=== PATIENT | female | born 1945 | race Caucasian/White ===

== ENCOUNTER → 2016-10-24 | Outpatient (CLI) | payer OTHER ==
[~2016-10-24] MED LIST: ATOR-54 PO; LEVO88TA22 PO; MULT-506 PO; ZOLP10TA6 PO
--- NOTE | 2016-10-25 12:17 | MAMMOGRAPHY REPORT ---
BILATERAL DIGITAL SCREENING MAMMOGRAM WITH CAD: 10/24/2016 CLINICAL HISTORY: Routine screening. Patient has no complaints. TECHNIQUE: Bilateral CC and MLO views were obtained. Current study was also evaluated with a Comput er Aided Detection (CAD) system. COMPARISON: Comparison is made to exams dated: 10/19/2015 mammogram, 10/14/2014 mammogram, 10/07/2013 mammogram, 10/01/2012 mammogram, 09/29/2011 mammogram, and 09/27/2010 mammogram - [facility] enter. BREAST COMPOSITION: There are scattered areas of fibroglandular density in both breasts. FINDINGS: There are mild vascular calcifications in the breasts. Stable asymmetry in the anterior r ight breast, 2.6 cm posterior to the nipple on the CC view. A 9 mm asymmetry in the middle to poste rior left breast, along the posterior nipple line on the CC view appears similar dating back to at [facility] 09/12/2008, therefore likely benign. There is a loose grouping of punctate monomorphic microca lcifications in the upper outer anterior left breast, also stable dating back to 2008. No new suspicious mass, architectural distortion or cluster of suspicious microcalcifications is see n bilaterally. IMPRESSION: ACR BI-RADS CATEGORY 2: BENIGN There is no mammographic evidence of malignancy. A 1 year screening mammogram is recommended. The p atient will receive written notification of the results. Approximately 10% of breast cancers are not detected with mammography. A negative mammographic repor t should not delay biopsy if a clinically suggestive mass is present. Cynthia Silva M.D. ay/:10/24/2016 16:47:16 Animal Behaviourist: Lissa Eubanks RT(R)(M), [facility] letter sent: Normal 1/2 BI-RADS Code: ACR BI-RADS Category 2: Benign
== END | disposition home or self-care (01) ==
LOC: C.MAMM 13:13
PROVIDERS: ATTEND Obstetrics & Gynecology
DX: Z12.31 Encounter for screening mammogram for malignant neoplasm of breast (principal)

== ENCOUNTER → 2016-11-08 | Outpatient (CLI) | payer OTHER ==
[2016-11-08 12:47] LABS: ALB/GLOB RATIO 0.9 (0.9-2); ALKALINE PHOSPHATASE 106 U/L (45-117); ALT/SGPT 30 U/L (12-78); AST/SGOT 21 U/L (15-37); BLOOD UREA NITROGEN 15 mg/dl (7-18); CALCIUM 8.6 mg/dl (8.5-10.1); CARBON DIOXIDE 29 mmol/L (21-32); CHLORIDE 106 mmol/L (98-107); CHOLESTEROL 154 mg/dl (0-200); CHOLESTEROL/HDL RATIO 2.1; CREATININE 0.84 mg/dl (0.60-1.20); GLUCOSE 99 mg/dl (70-99); HDL CHOLESTEROL 74 mg/dl; POTASSIUM 3.7 mmol/L (3.5-5.1); SODIUM 143 mmol/L (136-145)
[2016-11-08 13:02] LABS: LDL CHOLESTEROL CALCULATED 51 mg/dl; TRIGLYCERIDES 145 mg/dl (0-150); VERY LOW DENSITY LIPOPROT CALC 29 mg/dl
== END | disposition home or self-care (01) ==
LOC: C.LABBFT 11:02
PROVIDERS: ATTEND Internal Medicine
DX: E78.00 Pure hypercholesterolemia, unspecified (principal); E03.9 Hypothyroidism, unspecified

== ENCOUNTER → 2017-04-20 | Outpatient (CLI) | payer OTHER ==
[2017-04-20 12:07] LABS: HEMATOCRIT 40.7 % (37-47); MEAN CELL VOLUME 87.9 fL (80-100); MEAN CORPUSCULAR HEMOGLOBIN 28.7 pg (25-34); MEAN CORPUSCULAR HGB CONC 32.7 g/dl (32-36); MEAN PLATELET VOLUME 12.4 fL (7.4-10.4); PLATELET COUNT 280 K/uL (130-400); RED BLOOD COUNT 4.63 M/uL (4.2-5.4); WHITE BLOOD COUNT 8.04 K/uL (4.8-10.8)
[2017-04-20 12:19] LABS: ALT/SGPT 25 U/L (12-78); AST/SGOT 23 U/L (15-37); BLOOD UREA NITROGEN 9 mg/dl (7-18); BUN/CREATININE RATIO 10.6 (10-20); CALCIUM 8.5 mg/dl (8.5-10.1); CARBON DIOXIDE 29 mmol/L (21-32); CHLORIDE 106 mmol/L (98-107); CREATININE 0.86 mg/dl (0.60-1.20); GLUCOSE 118 mg/dl (70-99); POTASSIUM 3.4 mmol/L (3.5-5.1); SODIUM 142 mmol/L (136-145)
[2017-04-20 12:33] LABS: ALB/GLOB RATIO 0.9 (0.9-2); ALKALINE PHOSPHATASE 99 U/L (45-117); CHOLESTEROL 145 mg/dl (0-200); CHOLESTEROL/HDL RATIO 2.3; HDL CHOLESTEROL 62 mg/dl; LDL CHOLESTEROL CALCULATED 64 mg/dl; TRIGLYCERIDES 95 mg/dl (0-150); VERY LOW DENSITY LIPOPROT CALC 19 mg/dl
== END | disposition home or self-care (01) ==
LOC: C.LABBFT 09:47
PROVIDERS: ATTEND Internal Medicine
DX: E78.00 Pure hypercholesterolemia, unspecified (principal); E03.9 Hypothyroidism, unspecified

== ENCOUNTER → 2017-10-25 | Outpatient (CLI) | payer OTHER ==
[2017-10-25 12:54] LABS: HEMATOCRIT 40.5 % (37-47); HEMOGLOBIN 13.3 g/dL (12.0-16.0); MEAN CELL VOLUME 88.4 fL (80-100); MEAN CORPUSCULAR HGB CONC 32.8 g/dl (32-36); MEAN PLATELET VOLUME 12.7 fL (7.4-10.4); PLATELET COUNT 286 K/uL (130-400); RED CELL DISTRIBUTION WIDTH CV 14.5 % (11.5-14.5); RED CELL DISTRIBUTION WIDTH SD 46.8 fL (36.4-46.3); WHITE BLOOD COUNT 9.18 K/uL (4.8-10.8)
[2017-10-25 13:12] LABS: ALBUMIN 3.3 gm/dl (3.4-5.0); ALT/SGPT 19 U/L (12-78); AST/SGOT 21 U/L (15-37); BLOOD UREA NITROGEN 15 mg/dl (7-18); CALCIUM 8.5 mg/dl (8.5-10.1); CARBON DIOXIDE 29 mmol/L (21-32); CHOLESTEROL 178 mg/dl (0-200); CREATININE 0.82 mg/dl (0.60-1.20); GLUCOSE 93 mg/dl (70-99); POTASSIUM 2.8 mmol/L (3.5-5.1); SODIUM 142 mmol/L (136-145); TOTAL PROTEIN 7.1 gm/dl (6.4-8.2)
[2017-10-25 13:21] LABS: ALKALINE PHOSPHATASE 102 U/L (45-117); LDL CHOLESTEROL CALCULATED 88 mg/dl
== END | disposition home or self-care (01) ==
LOC: C.LABBFT 10:04
PROVIDERS: ATTEND Internal Medicine
DX: E78.00 Pure hypercholesterolemia, unspecified (principal); E03.9 Hypothyroidism, unspecified

== ENCOUNTER → 2017-10-26 | Outpatient (CLI) | payer OTHER ==
--- NOTE | 2017-10-26 14:44 | MAMMOGRAPHY REPORT ---
BILATERAL DIGITAL SCREENING MAMMOGRAM TOMOSYNTHESIS WITH CAD: 10/26/2017 CLINICAL HISTORY: Routine screening. Patient has no complaints. TECHNIQUE: Breast tomosynthesis in addition to standard 2D mammography was performed. Current study was also evaluated with a Computer Aided Detection (CAD) system. COMPARISON: Comparison is made to exams dated: 10/24/2016 mammogram, 10/19/2015 mammogram, 10/14/2014 ma mmogram, 10/07/2013 mammogram, 10/01/2012 mammogram, and 09/29/2011 mammogram - [facility]. BREAST COMPOSITION: There are scattered areas of fibroglandular density in both breasts. FINDINGS: No suspicious masses, calcifications, or areas of architectural distortion are noted in ei ther breast. There has been no significant interval change compared to prior exams. Bilateral asymme tries and bilateral benign-appearing calcifications are not significantly changed. IMPRESSION: ACR BI-RADS CATEGORY 2: BENIGN There is no mammographic evidence of malignancy. A 1 year screening mammogram is recommended. The pa tient will receive written notification of the results. Approximately 10% of breast cancers are not detected with mammography. A negative mammographic report should not delay biopsy if a clinically suggestive mass is present. Shauna Zapata M.D. /:10/26/2017 13:23:11 Pasting Machine Operator: Елена [facility] letter sent: Normal 1/2 BI-RADS Code: ACR BI-RADS Category 2: Benign
== END | disposition home or self-care (01) ==
LOC: C.MAMM 12:47
PROVIDERS: ATTEND Obstetrics & Gynecology
DX: Z12.31 Encounter for screening mammogram for malignant neoplasm of breast (principal)

== ENCOUNTER → 2017-11-01 | Outpatient (CLI) | payer OTHER ==
[2017-11-01 16:43] LABS: BLOOD UREA NITROGEN 12 mg/dl (7-18); CALCIUM 9.2 mg/dl (8.5-10.1); CARBON DIOXIDE 30 mmol/L (21-32); CREATININE 0.82 mg/dl (0.60-1.20); GLUCOSE 98 mg/dl (70-99); POTASSIUM 3.9 mmol/L (3.5-5.1); SODIUM 137 mmol/L (136-145)
== END | disposition home or self-care (01) ==
LOC: C.LABBFT 14:22
PROVIDERS: ATTEND Internal Medicine
DX: E87.6 Hypokalemia (principal)

== ENCOUNTER → 2018-02-22 | Outpatient (CLI) | payer OTHER ==
[2018-02-22 12:35] LABS: BLOOD UREA NITROGEN 16 mg/dl (7-18); CALCIUM 8.7 mg/dl (8.5-10.1); CARBON DIOXIDE 29 mmol/L (21-32); CREATININE 0.78 mg/dl (0.60-1.20); GLUCOSE 104 mg/dl (70-99); POTASSIUM 3.8 mmol/L (3.5-5.1); SODIUM 140 mmol/L (136-145)
== END | disposition home or self-care (01) ==
LOC: C.LABBFT 10:19
PROVIDERS: ATTEND Internal Medicine
DX: E87.6 Hypokalemia (principal)

== ENCOUNTER 2019-07-22 12:19 | Observation (INO) ==
[2019-07-22] MEDS ORDERED: ACETAMINOPHEN 500 MG TAB PO STA (12:55)
[2019-07-22] MEDS ORDERED: SODIUM CHLORIDE 0.9% 500 ML IV SCH (13:00)
--- NOTE | 2019-07-22 13:08 | XRay Report ---
XR chest 1V portable CLINICAL HISTORY: Dyspnea dyspnea COMPARISON STUDY: No previous studies for comparison. FINDINGS: Poorly defined parenchymal infiltrate right base. Lungs otherwise appear clear. Diaphragms are smooth. IMPRESSION: Poorly defined parenchymal infiltrate right base. ACT 112: Negative or not required by law. The above report was generated using voice recognition software. It may contain grammatical, syntax or spelling errors. Electronically signed by: Jones Miranda M.D. 07/22/2019 1:07 PM
[2019-07-22 13:20] LABS: Basophils # (auto) 0.04 K/uL (0-0.2); Basophils % (auto) 0.3 %; Eosinophils # (auto) 0.07 K/uL (0-0.5); Eosinophils % (auto) 0.6 %; Hematocrit (blood only) 37.4 % (37-47); Hemoglobin 12.3 g/dL (12.0-16.0); Immature Granulocytes # (auto) 0.03 K/uL (0.00-0.02); Immature Granulocytes % (auto) 0.3 %; Lymphocytes # (auto) 1.47 K/uL (1.2-3.4); Lymphocytes % (auto) 12.5 %; Mean Corpuscular Hemoglobin 29.6 pg (25-34); Mean Corpuscular Hgb Conc 32.9 g/dL (32-36); Mean Corpuscular Volume 90.1 fL (80-100); Mean Platelet Volume 11.6 fL (7.4-10.4); Monocytes # (auto) 1.29 K/uL (0.11-0.59); Neutrophils # (auto) 8.86 K/uL (1.4-6.5); Neutrophils % (auto) 75.3 %; Platelet Count 232 K/uL (130-400); RDW Coefficient of Variation 14.3 % (11.5-14.5); RDW Standard Deviation 47.5 fL (36.4-46.3); Red Blood Count 4.15 M/uL (4.2-5.4); White Blood Count 11.76 K/uL (4.8-10.8)
[2019-07-22 13:29] LABS: Partial Thromboplastin Ratio 0.9; Partial Thromboplastin Time 24.7 Seconds (21.0-31.0); Prothrombin Time 10.5 Seconds (9.0-12.0)
[2019-07-22 13:35] LABS: Alanine Aminotransferase 29 U/L (12-78); Aspartate Aminotransferase 19 U/L (15-37); BUN Creatinine Ratio 11.5 (10-20); Blood Urea Nitrogen 11 mg/dl (7-18); Calcium 9.8 mg/dl (8.5-10.1); Carbon Dioxide 28 mmol/L (21-32); Chloride 104 mmol/L (98-107); Creatinine Clr Calc Pharmacy 52.9 ml/min; Est GFR (African American) 64.9; Glucose 129 mg/dl (70-99); Magnesium 2.2 mg/dl (1.8-2.4); Potassium 3.3 mmol/L (3.5-5.1); Sodium 139 mmol/L (136-145)
[2019-07-22 13:45] LABS: Albumin Globulin Ratio 0.7 (0.9-2); Alkaline Phosphatase 104 U/L (45-117); Bilirubin,Total 2.2 mg/dl (0.2-1); Globulin 4.3 gm/dl (2.5-4.0); Total Protein 7.3 gm/dl (6.4-8.2); Troponin I < 0.015 ng/ml (0-0.045)
[2019-07-22] MEDS ORDERED: OPTIRAY 320 125ml IV PRN (13:51)
[2019-07-22 14:01] LABS: Influenza A virus by PCR Neg for Influ A (Neg); Influenza B virus by PCR Neg for Influ B (Neg)
--- NOTE | 2019-07-22 14:20 | CT Scan Report ---
CT angio chest PE protocol CT DOSE: 530.24 mGy.cm HISTORY: 74 years-old Female with Dyspnea, recent travel, R sided CP. Acute shortness of breath wit h right-sided chest pain TECHNIQUE: Multiple CTA images of the chest were obtained after the intravenous administration of 118 ml Optiray 320. Coronal and sagittal MIPS were obtained from the axial data set and were submitted for review. All measurements were obtained according to NASCET criteria. A dose lowering technique w as utilized adhering to the principles of ALARA. COMPARISON: Chest radiograph of same day FINDINGS: CTA: Cardiomegaly. No pericardial effusion. Coronary arterial calcifications are noted. No thoracic aortic aneurysm or dissection. Moderate mixed plaque of the thoracic aorta. Patency of the imaged great ves sels. The pulmonary arterial tree is opacified to the level of the proximal subsegmental branches. Pu lmonary emboli are noted within the distal right main pulmonary artery extending into the right upper lobe are, right upper and lower lobe segmental and subsegmental branches and the subsegmental pulmon jose bladder noted within the left lower lobe. No evidence of right heart strain. CT CHEST: Unremarkable thyroid. No adenopathy by CT size criteria. Small right pleural effusion. No pneumothora x. Mild linear subsegmental consolidation of the left lung base. Linear consolidative opacity of the right lower lobe with patchy consolidation suggests atelectasis. Superimposed pulmonary infarct not e xcluded. Respiratory motion artifact limits the study. 7 x 6 mm solid nodule right lower lobe, image 171 series 4. Cholecystectomy. Mild nonspecific wall thickening of the distal esophagus. Mild hepatic steatosis. So ft tissues are within normal limits. Bones appear to be intact. No acute fracture. IMPRESSION: 1. Bilateral pulmonary emboli, right greater than left which includes the distal right pulmonary kayla ry, lobar, segmental and subsegmental branches of the right lower lobe. 2. Small right pleural effusion with right greater left bibasilar atelectasis. Superimposed patchy gr oundglass and consolidative opacities of the right lung base may also reflect atelectasis, however pn eumonitis or developing infarct not excluded. 3. Cardiomegaly. 4. Cholecystectomy. ACT 112: Negative or not required by law. The above report was generated using voice recognition software. It may contain grammatical, syntax o r spelling errors. Electronically signed by: Rohan Gibbs M.D. 07/22/2019 2:19 PM
[2019-07-22] MEDS ORDERED: HEPARIN SOD (PORCINE) 1000 UNIT/ML 10 ML VIAL ONE (15:10)
[2019-07-22] MEDS: HEPARIN SODIUM/DEXTROSE 25,000 UNITS/500 ML BAG IV SCH (15:13)
--- NOTE | 2019-07-22 15:27 | History & Physical Report ---
Date of Service July 22, 2019 Assessment & Plan (1) Pulmonary emboli: 74-year-old female presenting with bilateral pulmonary emboli, right greater than left. Emboli involve the distal right pulmonary artery, lobar, segmental and subsegmental branches of the right lower lobe. She is afebrile, hemodynamically stable, adequate oxygenation on room air. No prior history of clots, no family history of clots. She does admit to a somewhat sedentary lifestyle where she walks around the house only. Recently completed a 4-hour car ride from [facility]. Observation to medical floor telemetry monitoring -Check bilateral lower extremity Doppler Heparin drip We will start on NOAC tomorrow Present on Admission?: Yes (2) Weakness: Patient complaining of generalized weakness. No focal findings on neurologic exam. Monitor electrolytes. Replete potassium. Continue to monitor Present on Admission?: Yes (3) Insomnia: Chronic. Stable. Continue Ambien 10 mg p.o. nightly Present on Admission?: Yes (4) Hypothyroidism: Chronic. Stable. TSH = 2.54 Continue Synthroid 88 mcg p.o. daily Present on Admission?: Yes (5) Hypercholesteremia: Chronic. Stable. Patient reports that she was on a program for which she could obtain this medication at a reduced fernandes. However, her program has recently and this medication costs over $200 per month. Therefore, she has not taken this since and was planning to discuss with her PCP. Continue atorvastatin 20 mg p.o. nightly. -Case management requested to assist with home medications Present on Admission?: Yes (6) Leukocytosis: Patient with mildly elevated WBC = 11.76. She reports malaise and subjective fever at home. Flu is negative, CT chest with some groundglass in setting of PE.? Developing pneumonia Awaiting UA Check procalcitonin Ceftriaxone and azithromycin for now for empiric coverage Continue to monitor Present on Admission?: Yes (7) Abnormal LFTs: Patient with mildly elevated total bilirubin at 2.2. No right upper quadrant tenderness. Patient is status post cholecystectomy. Alkaline phosphatase is within normal range at 104. Repeat LFTs in a.m. F/E/N -Hep-Lock. Monitor electrolytes and replete as needed. P.o. potassium 40 mEq x 1 dose. Heart healthy diet as tolerated ProphylaxisHeparin drip as above for treatment of bilateral PE Codefull per discussion with patient Dispositionobservation to medical floor telemetry monitoring Present on Admission?: Yes History of Present Illness Chief Complaint: Shortness of breath, right-sided chest pain Primary Care Provider: Abelardo Smith MD Angeles Ocampo is a pleasant 74-year-old female presenting with right-sided chest pain and shortness of breath. Patient states that her symptoms began on 07/18/2019 as a mild headache which progressed in severity. On 07/19/2019 patient was complaining of more severe headache as well as subjective fevers, dizziness, shortness of breath, dyspnea on exertion as well as severe right-sided chest pain. Chest pain is located from the right sternal border to the right anterior portion of the chest and under her right breast. Pain is worse with movement and deep breathing. Pain 10 out of 10 on arrival. After receiving Tylenol pain is now 7 out of 10. She denies cough, hemoptysis. No syncope. Patient with no personal history of VTE, no known family history of VTE. No recent surgeries or trauma. She did recently complete a 4-hour car ride from [place], [place]. She reports that they stopped approximately group home to use the restroom, stretches her legs and get coffee. She denies lower extremity pain, cramping or swelling. Patient reports regular mammograms which have all been unremarkable. She has never had a colonoscopy. She is status post hysterectomy. ER course: Tylenol, heparin drip with bolus Allergies Allergy/AdvReac Type Severity Reaction Status Date / Time aspirin Allergy Intermediate HIVES AND Verified 07/22/19 14:08 ITCHING metronidazole Allergy Intermediate HIVES AND Verified 07/22/19 14:08 ITCHING Quinolones Allergy Intermediate HIVES AND Verified 07/22/19 14:08 ITCHING Cipro Allergy Mild Rash Verified 08/04/15 07:28 ciprofloxacin Allergy Mild Rash Verified 07/22/19 14:08 clarithromycin Allergy Mild Rash Verified 07/22/19 14:08 amoxicillin [From Augmentin] AdvReac Verified 07/22/19 14:08 clavulanic acid AdvReac Verified 07/22/19 14:08 [From Augmentin] homatropine AdvReac Verified 07/22/19 14:08 [From Hycodan (with homatropin)] hydrocodone AdvReac Verified 07/22/19 14:08 [From codan (with homatropin)] Home Medications Home Medications Medication Instructions Recorded Confirmed Type atorvastatin 20 mg tablet 20 mg PO HS #30 tab 05/20/19 07/22/19 Rx levothyroxine 88 mcg tablet 88 mcg PO DAILY #60 tab 05/20/19 07/22/19 Rx zolpidem 10 mg tablet 10 mg PO HS #30 tab 05/20/19 07/22/19 Rx Past Med/Surg History Medical History Hypercholesteremia (Chronic) Hypothyroidism (Chronic) Insomnia (Chronic) Family History Mother Myocardial infarction Macular degeneration Brother Colorectal cancer Father COPD (chronic obstructive pulmonary disease) Social History Preferred Language: Greenlandic Communication Ability: Effective Beliefs That Will Affect Care: None Current Living Situation: Spouse Other Information That Helps Us Care for You: No Feels Safe at Home: Yes Safety Concerns: Feels Safe At This Time Smoking Status: Former smoker Age Started Using Tobacco: 13 ; Age Quit Using Tobacco: 38 ; packs per day: 0.5 ; Cigarettes Per Day: 10 ; Number of Years Since Quit: 36 ; Second Hand Exposure: No ; Hx Alcohol Use: Yes Alcohol type: beer, wine and hard liquor Alcohol Intake Frequency: Rarely Hx Substance Use: No Review of Systems Review of Systems: All systems reviewed & are unremarkable except as noted in HPI & below Patient reports her legs feel "and "wishy-washy" Mild diarrhea today Physical Exam Physical Exam: General: patient resting comfortably, NAD, non-toxic in appearance, AA&O x 4 Skin: warm, dry, intact, no rashes or lesions HEENT: NC/AT, PERRL, EOMI, anicteric sclera, conjunctiva without injection, external ear normal to inspection and nontender, nares patent, moist mucus membranes, dentition intact, no oropharyngeal lesions, neck supple, trachea midline, no LAD, no thyromegaly, no JVD Heart: +S1/S2, regular, no m/r/g, + chest wall tenderness on right Lungs: equal air entry bilaterally, no rales/rhonchi/wheezes Abd: +BS, soft, NT/ND, no masses/organomegaly/ascites Ext: Cool, 2+ pulses in UE/LE bilaterally, no clubbing/cyanosis, trace edema bilaterally Neuro: nonfocal, patient AA&O x 4, speech intact, no facial droop, moving all extremities on command with equal strength 5/5 Results & Data Vital Signs (Past 12 Hours) Vital Signs Temp Pulse Resp BP Pulse Ox 07/22/19 14:30 72 16 96 07/22/19 14:06 73 18 155/65 H 95 07/22/19 14:00 75 18 07/22/19 13:30 73 18 95 07/22/19 13:23 77 15 96 07/22/19 12:21 36.8 C 90 16 138/77 97 Laboratory Results Lab Results 07/22/19 07/22/19 07/22/19 Range/Units 13:08 13:08 13:08 WBC 11.76 H (4.8-10.8) K/uL RBC 4.15 L (4.2-5.4) M/uL Hgb 12.3 (12.0-16.0) g/dL Hct 37.4 (37-47) % MCV 90.1 (80-100) fL MCH 29.6 (25-34) pg MCHC 32.9 (32-36) g/dL RDW Std Deviation 47.5 H (36.4-46.3) fL RDW Coeff of Kamila 14.3 (11.5-14.5) % Plt Count 232 (130-400) K/uL MPV 11.6 H (7.4-10.4) fL Immature Gran % (Auto) 0.3 % Neut % (Auto) 75.3 % Lymph % (Auto) 12.5 % Larue % (Auto) 11.0 % Eos % (Auto) 0.6 % Baso % (Auto) 0.3 % Immature Gran # (Auto) 0.03 H (0.00-0.02) K/uL Neut # (Auto) 8.86 H (1.4-6.5) K/uL Lymph # (Auto) 1.47 (1.2-3.4) K/uL Larue # (Auto) 1.29 H (0.11-0.59) K/uL Eos # (Auto) 0.07 (0-0.5) K/uL Baso # (Auto) 0.04 (0-0.2) K/uL PT 10.5 (9.0-12.0) Seconds INR 1.0 (0.9-1.1) APTT 24.7 (21.0-31.0) Seconds PTT Ratio 0.9 Sodium 139 (136-145) mmol/L Potassium 3.3 L (3.5-5.1) mmol/L Chloride 104 (98-107) mmol/L Carbon Dioxide 28 (21-32) mmol/L Anion Gap 7.0 (3-11) BUN 11 (7-18) mg/dl Creatinine 0.98 (0.6-1.2) mg/dl Est Cr Clr Drug Dosing 52.9 ml/min Est GFR ( Amer) 64.9 Est GFR (Non-Af Amer) 56.0 BUN/Creatinine Ratio 11.5 (10-20) Glucose 129 H (70-99) mg/dl Calcium 9.8 (8.5-10.1) mg/dl Magnesium 2.2 (1.8-2.4) mg/dl Total Bilirubin 2.2 H (0.2-1) mg/dl AST 19 (15-37) U/L ALT 29 (12-78) U/L Alkaline Phosphatase 104 (45-117) U/L Troponin I < 0.015 (0-0.045) ng/ml NT-Pro-B Natriuret Pep (0-1800) pg/ml Total Protein 7.3 (6.4-8.2) gm/dl Albumin 3.0 L (3.4-5.0) gm/dl Globulin 4.3 H (2.5-4.0) gm/dl Albumin/Globulin Ratio 0.7 L (0.9-2) TSH 2.540 (0.300-4.500) uIu/ml Influenza Type A (PCR) (Neg) Influenza Type B (PCR) (Neg) 07/22/19 07/22/19 Range/Units 13:08 13:20 WBC (4.8-10.8) K/uL RBC (4.2-5.4) M/uL Hgb (12.0-16.0) g/dL Hct (37-47) % MCV (80-100) fL MCH (25-34) pg MCHC (32-36) g/dL RDW Std Deviation (36.4-46.3) fL RDW Coeff of Kamila (11.5-14.5) % Plt Count (130-400) K/uL MPV (7.4-10.4) fL Immature Gran % (Auto) % Neut % (Auto) % Lymph % (Auto) % Larue % (Auto) % Eos % (Auto) % Baso % (Auto) % Immature Gran # (Auto) (0.00-0.02) K/uL Neut # (Auto) (1.4-6.5) K/uL Lymph # (Auto) (1.2-3.4) K/uL Larue # (Auto) (0.11-0.59) K/uL Eos # (Auto) (0-0.5) K/uL Baso # (Auto) (0-0.2) K/uL PT (9.0-12.0) Seconds INR (0.9-1.1) APTT (21.0-31.0) Seconds PTT Ratio Sodium (136-145) mmol/L Potassium (3.5-5.1) mmol/L Chloride (98-107) mmol/L Carbon Dioxide (21-32) mmol/L Anion Gap (3-11) BUN (7-18) mg/dl Creatinine (0.6-1.2) mg/dl Est Cr Clr Drug Dosing ml/min Est GFR ( Amer) Est GFR (Non-Af Amer) BUN/Creatinine Ratio (10-20) Glucose (70-99) mg/dl Calcium (8.5-10.1) mg/dl Magnesium (1.8-2.4) mg/dl Total Bilirubin (0.2-1) mg/dl AST (15-37) U/L ALT (12-78) U/L Alkaline Phosphatase (45-117) U/L Troponin I (0-0.045) ng/ml NT-Pro-B Natriuret Pep 108 (0-1800) pg/ml Total Protein (6.4-8.2) gm/dl Albumin (3.4-5.0) gm/dl Globulin (2.5-4.0) gm/dl Albumin/Globulin Ratio (0.9-2) TSH (0.300-4.500) uIu/ml Influenza Type A (PCR) Neg for Influ A (Neg) Influenza Type B (PCR) Neg for Influ B (Neg) Diagnostic Findings CT angio chest PE protocol CT DOSE: 530.24 mGy.cm HISTORY: 74 years-old Female with Dyspnea, recent travel, R sided CP. Acute shortness of breath with right-sided chest pain TECHNIQUE: Multiple CTA images of the chest were obtained after the intravenous administration of 118 ml Optiray 320. Coronal and sagittal MIPS were obtained from the axial data set and were submitted for review. All measurements were obtained according to NASCET criteria. A dose lowering technique was utilized adhering to the principles of ALARA. COMPARISON: Chest radiograph of same day FINDINGS: CTA: Cardiomegaly. No pericardial effusion. Coronary arterial calcifications are noted. No thoracic aortic aneurysm or dissection. Moderate mixed plaque of the thoracic aorta. Patency of the imaged great vessels. The pulmonary arterial tree is opacified to the level of the proximal subsegmental branches. Pulmonary emboli are noted within the distal right main pulmonary artery extending into the right upper lobe are, right upper and lower lobe segmental and subsegmental branches and the subsegmental pulmonary bladder noted within the left lower lobe. No evidence of right heart strain. CT CHEST: Unremarkable thyroid. No adenopathy by CT size criteria. Small right pleural effusion. No pneumothorax. Mild linear subsegmental consolidation of the left lung base. Linear consolidative opacity of the right lower lobe with patchy consolidation suggests atelectasis. Superimposed pulmonary infarct not excluded. Respiratory motion artifact limits the study. 7 x 6 mm solid nodule right lower lobe, image 171 series 4. Cholecystectomy. Mild nonspecific wall thickening of the distal esophagus. Mild hepatic steatosis. Soft tissues are within normal limits. Bones appear to be intact. No acute fracture. IMPRESSION: 1. Bilateral pulmonary emboli, right greater than left which includes the distal right pulmonary artery, lobar, segmental and subsegmental branches of the right lower lobe. 2. Small right pleural effusion with right greater left bibasilar atelectasis. Superimposed patchy groundglass and consolidative opacities of the right lung base may also reflect atelectasis, however pneumonitis or developing infarct not excluded. 3. Cardiomegaly. 4. Cholecystectomy. ACT 112: Negative or not required by law. The above report was generated using voice recognition software. It may contain grammatical, syntax or spelling errors. Electronically signed by: Rohan Gibbs M.D. 07/22/2019 2:19 PM Dictated: 07/22/19 1359 Transcribed: 07/22/19 135 XR chest 1V portable CLINICAL HISTORY: Dyspnea dyspnea COMPARISON STUDY: No previous studies for comparison. FINDINGS: Poorly defined parenchymal infiltrate right base. Lungs otherwise appear clear. Diaphragms are smooth. IMPRESSION: Poorly defined parenchymal infiltrate right base. ACT 112: Negative or not required by law. The above report was generated using voice recognition software. It may contain grammatical, syntax or spelling errors. Electronically signed by: Jones Miranda M.D. 07/22/2019 1:07 PM Dictated: 07/22/19 1307 Transcribed: 07/22/19 1307 Code Status & VTE Plan Code Status Full code VTE Prophylaxis Plan VTE Prophylaxis will be ordered: Yes PG Care Time/CCT Total # of Minutes Spent Total Time Spent with Patient: Total time spent is greater than 50% in co ordination of care (as documented) at patient's floor/unit and/or counseling patient: (1) Pulmonary emboli Acute cor pulmonale presence: unspecified Chronicity: acute Pulmonary embolism type: unspecified Qualified Code(s): I26.99 - Other pulmonary embolism without acute cor pulmonale (2) Insomnia Insomnia type: unspecified Qualified Code(s): G47.00 - Insomnia, unspecified (3) Hypothyroidism Hypothyroidism type: unspecified Qualified Code(s): E03.9 - Hypothyroidism, unspecified (4) Leukocytosis Leukocytosis type: unspecified Qualified Code(s): D72.829 - Elevated white blood cell count, unspecified
[2019-07-22] MEDS ORDERED: ACETAMINOPHEN 325 MG TAB PO PRN (17:00)
[2019-07-22] MEDS ORDERED: POTASSIUM CHLORIDE 20 MEQ TABCR PO STA (17:00)
[2019-07-22] MEDS ORDERED: AZITHROMYCIN 500 MG in DEXTROSE 5% 250 ML IV STA (17:11)
--- NOTE | 2019-07-22 17:17 | Emergency Department Note ---
Entered by Tracie Beach acting as a scribe for Valentín Gomes M.D. History of Present Illness General Chief complaint: Shortness of Breath/Dyspnea Stated complaint: SHORTNESS OF BREATH - SENT BY DOCTOR ARVIN Time Seen by Provider: 07/22/19 12:45 Source: patient History of Present Illness Onset (ago): day(s) 3 Location: chest Radiation: neck and other (left shoulder) Pain Consistency: + other (persistent) Maximum Pain Intensity: 4 Quality: + other (chest pain) Exacerbated By: + movement Associated symptoms: + chest pain, + fever/chills, + headaches and + shortness of breath; no nausea/vomiting and no rash Treatments prior to arrival: none The patient is a 74 year old female presenting to the Emergency Department complaining of persistent chest pain starting 3 days ago. The patient reports that she has been experiencing chest pain which radiates to her neck and left shoulder. She states that she has been short of breath for the past 3 days. She explains that she has had a headache for the past 4 days. She notes that she has been experiencing diarrhea. She adds that she is congested and that her right ear hurts. The patient reports that she doesnt know if she has a fever as her temperature normally is low but that she has been experiencing chills. She states that bending over worsens her symptoms. She notes that she hasnt taken any medications for her symptoms. She adds that she and her recently traveled 4 hours by car out of community health and returned to the [place] area on 07/19/19. The patient denies recent falls, abdominal pain, nausea, vomiting, rash and use of blood thinners. Home Medications Home Medications Medication Instructions Recorded Confirmed Type atorvastatin 20 mg tablet 20 mg PO HS #30 tab 05/20/19 07/22/19 Rx levothyroxine 88 mcg tablet 88 mcg PO DAILY #60 tab 05/20/19 07/22/19 Rx zolpidem 10 mg tablet 10 mg PO HS #30 tab 05/20/19 07/22/19 Rx Allergies Allergy/AdvReac Type Severity Reaction Status Date / Time aspirin Allergy Intermediate HIVES AND Verified 07/22/19 14:08 ITCHING metronidazole Allergy Intermediate HIVES AND Verified 07/22/19 14:08 ITCHING Quinolones Allergy Intermediate HIVES AND Verified 07/22/19 14:08 ITCHING Cipro Allergy Mild Rash Verified 08/04/15 07:28 ciprofloxacin Allergy Mild Rash Verified 07/22/19 14:08 clarithromycin Allergy Mild Rash Verified 07/22/19 14:08 amoxicillin [From Augmentin] AdvReac Verified 07/22/19 14:08 clavulanic acid AdvReac Verified 07/22/19 14:08 [From Augmentin] homatropine AdvReac Verified 07/22/19 14:08 [From Hycodan (with homatropin)] hydrocodone AdvReac Verified 07/22/19 14:08 [From Hycodan (with homatropin)] Past Med/Surg History Medical History Hypercholesteremia (Chronic) Hypothyroidism (Chronic) Insomnia (Chronic) Family History Mother Myocardial infarction Macular degeneration Brother Colorectal cancer Father COPD (chronic obstructive pulmonary disease) Social History Preferred Language: Malaysian Communication Ability: Effective Beliefs That Will Affect Care: None Current Living Situation: Spouse Feels Safe at Home: Yes Smoking Status: Former smoker Age Started Using Tobacco: 13 ; Age Quit Using Tobacco: 38 ; packs per day: 0.5 ; Cigarettes Per Day: 10 ; Second Hand Exposure: No ; Hx Alcohol Use: Yes Alcohol type: beer, wine and hard liquor Alcohol Intake Frequency: Rarely Hx Substance Use: No Review of Systems See HPI for pertinent positives & negatives. and A total of 10 systems reviewed and were otherwise negative Physical Exam Vital Signs Vital Signs - 24 hr 07/22/19 12:21 07/22/19 13:23 07/22/19 13:30 Temperature 36.8 C Temperature Source Oral Pulse Rate 90 77 73 Pulse Rate from SpO2 Sensor 77 73 Respiratory Rate 16 15 18 Respiratory Effort / Characteristics Non-Labored Respiratory Depth Normal Blood Pressure 138/77 Blood Pressure Mean 97 Pulse Oximetry 97 96 95 Oxygen Delivery Method Room Air Room Air Room Air Sepsis Recent Fever Within 48 Hours No Sepsis Action Taken by Nursing No Action Required 07/22/19 14:00 07/22/19 14:06 07/22/19 14:30 Temperature Temperature Source Pulse Rate 75 73 72 Pulse Rate from SpO2 Sensor 74 73 Respiratory Rate 18 18 16 Respiratory Effort / Characteristics Respiratory Depth Blood Pressure 155/65 H Blood Pressure Mean 88 Pulse Oximetry 95 96 Oxygen Delivery Method Room Air Room Air Sepsis Recent Fever Within 48 Hours Sepsis Action Taken by Nursing 07/22/19 15:02 07/22/19 15:18 Temperature Temperature Source Pulse Rate 79 Pulse Rate from SpO2 Sensor 73 79 Respiratory Rate 17 Respiratory Effort / Characteristics Respiratory Depth Blood Pressure 144/66 H Blood Pressure Mean 83 Pulse Oximetry 96 94 Oxygen Delivery Method Sepsis Recent Fever Within 48 Hours Sepsis Action Taken by Nursing GENERAL: Awake, alert, well-appearing, in no distress HENT: Normocephalic, atraumatic. EYES: Normal conjunctiva. Sclera non-icteric. NECK: Mild right trapezius tenderness. Supple. No nuchal rigidity. RESPIRATORY: Clear to auscultation. No wheezes. Normal respiratory effort. CARDIAC: Normal rate. Normal rhythm. Extremities warm and well perfused. GI: Soft, non-distended. No tenderness to palpation. No rebound or guarding. RECTAL: Deferred. MUSCULOSKELETAL: Atraumatic. Mild right upper chest wall tenderness. LOWER EXTREMITIES: Trace bilateral pedal edema. Calves are equal size bilater ally and non-tender. NEURO: Normal sensorium. No sensory or motor deficits noted. No facial droop. SKIN: Warm and dry. No rash or jaundice noted. Course Course 1245: The patient was evaluated in room D1B, and a complete history and physical examination were performed. 1424: I updated the patient at this time on her imaging studies. 1438: I reevaluated the patient at this time. 1444: I discussed the patients case with Dr. Aristeo RASHEED hospitalist. She will evaluate the patient for further management. Administered Medications Heparin Sodium/Dextrose (Heparin Sodium/Dextrose) 25,000 units in 500 mls @ 25 mls/hr IV .Q20H PENDING SALE TO [facility]; Protocol Stop: 08/21/19 14:44 Last Admin: 07/22/19 15:13 Dose: 1,250 units/hr, 25 mls/hr Documented by: [id number] Cosigned by: [id number] Ioversol (Optiray 320 125ml) 118 ml IV ONCE PRN PRN Reason: Interaction Checking Stop: 07/26/19 13:50 Last Admin: 07/22/19 13:53 Dose: 118 ml Documented by: [id number] Discontinued Medications Acetaminophen (Tylenol) 1,000 mg PO NOW STA Stop: 07/22/19 12:56 Last Admin: 07/22/19 13:14 Dose: 1,000 mg Documented by: [id number] Heparin Sodium (Porcine) (Heparin Iv Bolus) Confirm Administered Dose 10,000 units .ROUTE .STK-MED ONE Stop: 07/22/19 15:11 Last Admin: 07/22/19 15:13 Dose: 4,000 units Documented by: [id number] Cosigned by: [id number] Heparin Sodium/Dextrose () 1 ea IV NOW STA; Protocol Stop: 07/22/19 14:44 Last Admin: 07/22/19 15:20 Dose: Not Given Documented by: [id number] Sodium Chloride (Nss) 500 mls @ 999 mls/hr IV .Q31M RUPALI Stop: 07/22/19 13:30 Last Infusion: 07/22/19 13:46 Dose: 0 mls/hr Documented by: [id number] Admin: 07/22/19 13:15 Dose: 999 mls/hr Documented by: [id number] Critical Care Time Critical Care Time: Yes Total Critical Care Time: 34 I have personally spent 34 minutes of critical care time in the direct management of this patient. This includes bedside care, interpretation of diagnostic studies, and testing, discussion with consultants, patient, and family members, and other required patient management activities. This 34 minutes is in excess of all separately billable procedures. Medical Decision Making Differential Diagnosis Differential diagnoses includes but is not limited to acute coronary syndrome, myocardial infarction, pericarditis, pulmonary embolus, aortic dissection, pneumonia, pneumothorax, musculoskeletal, shingles, esophageal. Medical Records Attestation: I reviewed the patient's medical records. Home Medications Current Medication List: was personally reviewed by pr Laboratory Data Attestation: I reviewed the patient's lab results. Result diagrams: 07/22/19 13:08 07/22/19 13:08 Lab Results 07/22/19 07/22/19 07/22/19 Range/Units 13:08 13:08 13:08 WBC 11.76 H (4.8-10.8) K/uL RBC 4.15 L (4.2-5.4) M/uL Hgb 12.3 (12.0-16.0) g/dL Hct 37.4 (37-47) % MCV 90.1 (80-100) fL MCH 29.6 (25-34) pg MCHC 32.9 (32-36) g/dL RDW Std Deviation 47.5 H (36.4-46.3) fL RDW Coeff of Kamila 14.3 (11.5-14.5) % Plt Count 232 (130-400) K/uL MPV 11.6 H (7.4-10.4) fL Immature Gran % (Auto) 0.3 % Neut % (Auto) 75.3 % Lymph % (Auto) 12.5 % Platte % (Auto) 11.0 % Eos % (Auto) 0.6 % Baso % (Auto) 0.3 % Immature Gran # (Auto) 0.03 H (0.00-0.02) K/uL Neut # (Auto) 8.86 H (1.4-6.5) K/uL Lymph # (Auto) 1.47 (1.2-3.4) K/uL Platte # (Auto) 1.29 H (0.11-0.59) K/uL Eos # (Auto) 0.07 (0-0.5) K/uL Baso # (Auto) 0.04 (0-0.2) K/uL PT 10.5 (9.0-12.0) Seconds INR 1.0 (0.9-1.1) APTT 24.7 (21.0-31.0) Seconds PTT Ratio 0.9 Sodium 139 (136-145) mmol/L Potassium 3.3 L (3.5-5.1) mmol/L Chloride 104 (98-107) mmol/L Carbon Dioxide 28 (21-32) mmol/L Anion Gap 7.0 (3-11) BUN 11 (7-18) mg/dl Creatinine 0.98 (0.6-1.2) mg/dl Est Cr Clr Drug Dosing 52.9 ml/min Est GFR ( Amer) 64.9 Est GFR (Non-Af Amer) 56.0 BUN/Creatinine Ratio 11.5 (10-20) Glucose 129 H (70-99) mg/dl Calcium 9.8 (8.5-10.1) mg/dl Magnesium 2.2 (1.8-2.4) mg/dl Total Bilirubin 2.2 H (0.2-1) mg/dl AST 19 (15-37) U/L ALT 29 (12-78) U/L Alkaline Phosphatase 104 (45-117) U/L Troponin I < 0.015 (0-0.045) ng/ml NT-Pro-B Natriuret Pep (0-1800) pg/ml Total Protein 7.3 (6.4-8.2) gm/dl Albumin 3.0 L (3.4-5.0) gm/dl Globulin 4.3 H (2.5-4.0) gm/dl Albumin/Globulin Ratio 0.7 L (0.9-2) TSH 2.540 (0.300-4.500) uIu/ml Influenza Type A (PCR) (Neg) Influenza Type B (PCR) (Neg) 07/22/19 07/22/19 Range/Units 13:08 13:20 WBC (4.8-10.8) K/uL RBC (4.2-5.4) M/uL Hgb (12.0-16.0) g/dL Hct (37-47) % MCV (80-100) fL MCH (25-34) pg MCHC (32-36) g/dL RDW Std Deviation (36.4-46.3) fL RDW Coeff of Kamila (11.5-14.5) % Plt Count (130-400) K/uL MPV (7.4-10.4) fL Immature Gran % (Auto) % Neut % (Auto) % Lymph % (Auto) % Platte % (Auto) % Eos % (Auto) % Baso % (Auto) % Immature Gran # (Auto) (0.00-0.02) K/uL Neut # (Auto) (1.4-6.5) K/uL Lymph # (Auto) (1.2-3.4) K/uL Platte # (Auto) (0.11-0.59) K/uL Eos # (Auto) (0-0.5) K/uL Baso # (Auto) (0-0.2) K/uL PT (9.0-12.0) Seconds INR (0.9-1.1) APTT (21.0-31.0) Seconds PTT Ratio Sodium (136-145) mmol/L Potassium (3.5-5.1) mmol/L Chloride (98-107) mmol/L Carbon Dioxide (21-32) mmol/L Anion Gap (3-11) BUN (7-18) mg/dl Creatinine (0.6-1.2) mg/dl Est Cr Clr Drug Dosing ml/min Est GFR ( Amer) Est GFR (Non-Af Amer) BUN/Creatinine Ratio (10-20) Glucose (70-99) mg/dl Calcium (8.5-10.1) mg/dl Magnesium (1.8-2.4) mg/dl Total Bilirubin (0.2-1) mg/dl AST (15-37) U/L ALT (12-78) U/L Alkaline Phosphatase (45-117) U/L Troponin I (0-0.045) ng/ml NT-Pro-B Natriuret Pep 108 (0-1800) pg/ml Total Protein (6.4-8.2) gm/dl Albumin (3.4-5.0) gm/dl Globulin (2.5-4.0) gm/dl Albumin/Globulin Ratio (0.9-2) TSH (0.300-4.500) uIu/ml Influenza Type A (PCR) Neg for Influ A (Neg) Influenza Type B (PCR) Neg for Influ B (Neg) Imaging Data Radiologist's Impression: Radiology results as stated below per my review and the radiologist's interpretation: CT angio chest PE protocol CT DOSE: 530.24 mGy.cm HISTORY: 74 years-old Female with Dyspnea, recent travel, R sided CP. Acute shortness of breath with right-sided chest pain TECHNIQUE: Multiple CTA images of the chest were obtained after the intravenous administration of 118 ml Optiray 320. Coronal and sagittal MIPS were obtained from the axial data set and were submitted for review. All measurements were obtained according to NASCET criteria. A dose lowering technique was utilized adhering to the principles of ALARA. COMPARISON: Chest radiograph of same day FINDINGS: CTA: Cardiomegaly. No pericardial effusion. Coronary arterial calcifications are noted. No thoracic aortic aneurysm or dissection. Moderate mixed plaque of the thoracic aorta. Patency of the imaged great vessels. The pulmonary arterial tree is opacified to the level of the proximal subsegmental branches. Pulmonary emboli are noted within the distal right main pulmonary artery extending into the right upper lobe are, right upper and lower lobe segmental and subsegmental branches and the subsegmental pulmonary bladder noted within the left lower lobe. No evidence of right heart strain. CT CHEST: Unremarkable thyroid. No adenopathy by CT size criteria. Small right pleural effusion. No pneumothorax. Mild linear subsegmental consolidation of the left lung base. Linear consolidative opacity of the right lower lobe with patchy consolidation suggests atelectasis. Superimposed pulmonary infarct not excluded. Respiratory motion artifact limits the study. 7 x 6 mm solid nodule right lower lobe, image 171 series 4. Cholecystectomy. Mild nonspecific wall thickening of the distal esophagus. Mild hepatic steatosis. Soft tissues are within normal limits. Bones appear to be intact. No acute fracture. IMPRESSION: 1. Bilateral pulmonary emboli, right greater than left which includes the distal right pulmonary artery, lobar, segmental and subsegmental branches of the right lower lobe. 2. Small right pleural effusion with right greater left bibasilar atelectasis. Superimposed patchy groundglass and consolidative opacities of the right lung base may also reflect atelectasis, however pneumonitis or developing infarct not excluded. 3. Cardiomegaly. 4. Cholecystectomy. ACT 112: Negative or not required by law. The above report was generated using voice recognition software. It may contain grammatical, syntax or spelling errors. Electronically signed by: Rohan Gibbs M.D. 07/22/2019 2:19 PM XR chest 1V portable CLINICAL HISTORY: Dyspnea dyspnea COMPARISON STUDY: No previous studies for comparison. FINDINGS: Poorly defined parenchymal infiltrate right base. Lungs otherwise appear clear. Diaphragms are smooth. IMPRESSION: Poorly defined parenchymal infiltrate right base. ACT 112: Negative or not required by law. The above report was generated using voice recognition software. It may contain grammatical, syntax or spelling errors. Electronically signed by: Jones Miranda M.D. 07/22/2019 1:07 PM ECG Data Attestation: I personally reviewed and interpreted this ECG as follows: Indication: + chest pain and + SOB/dyspnea Rate (beats per minute): 87 Rhythm: + normal sinus ECG Intervals/blocks: + Normal QT-c ECG ST segments: no ST elevation ECG Findings: + Other (T wave flattening in V3 and V4.); no PVCs Blood Pressure Blood Pressure Findings: Elevated blood pressure Blood Pressure Disposition: further management by hospitalist WALTER Narrative Patient is a 74-year-old female with a history of hypothyroidism, insomnia, and hyperlipidemia presenting today reporting general malaise, some shortness of breath, right earache, and some on and off headache over the last 5 days. Denies trauma. No fevers reported. Afebrile upon arrival here. Not hypoxic. Complains of some right-sided neck and shoulder pain radiating to the right ear. Tried to massage and heat at home which had helped briefly. Pain is worse with movement of the arm. Right-sided chest and upper chest wall pain is reported. No rash. Denies trauma. Recent travel for the holidays several hours in a car. Denies left-sided complaints. No significant neurological deficits. Doubt this represents acute CVA or ICH at this point. Does complains of some sinus drainage. Symptoms could be somewhat related to viral syndrome however she is at risk for PE given her recent travel as well as pneumonia. States she felt warm and maybe had some chills at home. No reported temperature. Symptoms have been consistent since onset. Doubt sepsis. Benign abdomen. Basic labs, EKG, flu testing, and CT of the chest was completed to evaluate. Given some Tylenol to help with symptoms in the meantime. Chest x-ray does show evidence of a ?infiltrate in the right base. Slight leukocytosis is noted. No anemia. Very mild hypokalemia no other significant electrolyte abnormality. Influenza testing is negative. No detectable troponin or evidence of hepatitis. CT scan shows evidence of bilateral pulmonary emboli right greater than left occluding the right distal pulmonary artery, lobar, segmental and subsegmental branches in the left lower lobe with atelectasis versus infarct/pneumonitis per radiology report. Agree on reviewing CT images myself. Given the lack of fever will defer antibiotic treatment at this time as likely infarct. Unclear troponin stable does not have an oxygen requirement. Patient does however continue to experience right sided chest pain, dyspnea on exertion, and generalized weakness. Given this discussed with her and the hospitalist recommend to be monitored here in the hospital. Started on heparin drip. Impression & Plan Pulmonary emboli, Chest pain, Weakness Discharge Plan Visit Data *Final* Discharge Date/Time: 07/22/19 16:22 Chief Complaint: Shortness of Breath/Dyspnea Stated Complaint: SHORTNESS OF BREATH - SENT BY DOCTOR SHERIDAN ED Provider: Valentín Gomes Discharge Problem: Pulmonary emboli, Chest pain, Weakness Patient Disposition: Admitted As Inpatient Discharge Instructions Interventions: ED Discharge Assessment Last Done: 07/22/19 16:22 Discharge Problem: Pulmonary emboli Qualifiers: Pulmonary embolism type: unspecified Chronicity: acute Acute cor pulmonale presence: unspecified Qualified Code(s): I26.99 - Other pulmonary embolism without acute cor pulmonale Chest pain Qualifiers: Chest pain type: unspecified Qualified Code(s): R07.9 - Chest pain, unspecified The scribe's documentation has been prepared under my direction and personally reviewed by me in its entirety. I confirm that the note above accurately reflects all work, treatment, procedures, and medical decision making performed by me.
[2019-07-22 17:55] LABS: Albumin Level 2.8 gm/dl (3.4-5.0); Bilirubin Direct 0.4 mg/dl (0-0.2); Phosphorus 3.2 mg/dl (2.5-4.9); Total Protein 7.4 gm/dl (6.4-8.2)
[2019-07-22] MEDS: cefTRIAXone SODIUM 2,000 MG in DEXTROSE 5% 50 ML IV SCH (18:08)
[2019-07-22 19:44] LABS: Appearance Urine Clear (Clear); Bilirubin Urine Negative (Negative); Blood Urine 2+ (Negative); Color Urine Yellow; Glucose Urine UA Negative (Negative); Ketones Urine Negative (Negative); Leukocyte Esterase Urine 1+ (Negative); Nitrite Urine Positive (Negative); Protein Urine Negative (Negative); Specific Gravity Urine 1.024 (1.000-1.030); Urobilinogen Urine Negative (Negative)
[2019-07-22 20:00] LABS: Epithelial Cell Urine 0-5 /lpf (0-5)
[2019-07-22 20:01] LABS: Bacteria Urine Negative (Negative)
[2019-07-22] MEDS: ATORVASTATIN 20 MG TAB PO SCH (20:31)
[2019-07-22] MEDS: ZOLPIDEM TARTRATE 10 MG TAB PO SCH (20:31)
[2019-07-22 21:37] LABS: Partial Thromboplastin Ratio 2.4
[2019-07-22 21:42] LABS: Partial Thromboplastin Time 66.2 Seconds (21.0-31.0)
--- NOTE | 2019-07-22 21:49 | Ultrasound Report ---
BILATERAL LOWER EXTREMITY VENOUS DOPPLER CLINICAL HISTORY: ?DVT COMPARISON STUDY: No previous studies for comparison. TECHNIQUE: Sonography of the deep venous system of the bilateral lower extremities was performed. Co mpression and augmentation were evaluated. FINDINGS: Note is made of deep venous thrombus within the right peroneal vein. The left common femora l, superficial femoral and popliteal veins were compressible. Augmentation was normal. Flow was shown within the deep calf vessels. IMPRESSION: 1. Deep venous thrombus within the right peroneal vein. 2. No deep venous thrombus within the left lower extremity. ACT 112: Negative or not required by law. Electronically signed by: Shadi Vásquez M.D. 07/22/2019 9:48 PM
[2019-07-23] MEDS: LEVOTHYROXINE SODIUM 88 MCG TABLET PO SCH (06:21)
[2019-07-23 06:40] LABS: Basophils # (auto) 0.04 K/uL (0-0.2); Basophils % (auto) 0.4 %; Eosinophils # (auto) 0.08 K/uL (0-0.5); Eosinophils % (auto) 0.9 %; Hematocrit (blood only) 35.6 % (37-47); Hemoglobin 11.5 g/dL (12.0-16.0); Immature Granulocytes # (auto) 0.02 K/uL (0.00-0.02); Immature Granulocytes % (auto) 0.2 %; Lymphocytes # (auto) 1.51 K/uL (1.2-3.4); Lymphocytes % (auto) 16.3 %; Mean Corpuscular Hemoglobin 28.7 pg (25-34); Mean Corpuscular Hgb Conc 32.3 g/dL (32-36); Mean Corpuscular Volume 88.8 fL (80-100); Mean Platelet Volume 12.3 fL (7.4-10.4); Monocytes % (auto) 11.8 %; Neutrophils # (auto) 6.54 K/uL (1.4-6.5); Neutrophils % (auto) 70.4 %; Platelet Count 244 K/uL (130-400); RDW Coefficient of Variation 14.4 % (11.5-14.5); Red Blood Count 4.01 M/uL (4.2-5.4); White Blood Count 9.29 K/uL (4.8-10.8)
[2019-07-23 07:03] LABS: Partial Thromboplastin Ratio 2.1
[2019-07-23 07:08] LABS: Partial Thromboplastin Time 55.7 Seconds (21.0-31.0)
[2019-07-23 07:22] LABS: Albumin Level 2.7 gm/dl (3.4-5.0); Bilirubin Direct 0.3 mg/dl (0-0.2); Bilirubin,Total 1.4 mg/dl (0.2-1); Calcium 8.6 mg/dl (8.5-10.1); Creatinine Clr Calc Pharmacy 60.9 ml/min; Est GFR (African American) 77.1; Est GFR (Non-African American) 66.6; Potassium 3.5 mmol/L (3.5-5.1); Total Protein 7.2 gm/dl (6.4-8.2)
[2019-07-23] MEDS: AZITHROMYCIN 250 MG in DEXTROSE 5% 250 ML IV SCH (07:36)
[2019-07-23] MEDS: HEPARIN SODIUM/DEXTROSE 25,000 UNITS/500 ML BAG IV SCH (12:19)
[2019-07-23] MEDS: TRAMADOL HCL 50 MG TABLET PO PRN ×2 (14:49→23:53)
[2019-07-23] MEDS: cefTRIAXone SODIUM 2,000 MG in DEXTROSE 5% 50 ML IV SCH (17:53)
[2019-07-23] MEDS: ATORVASTATIN 20 MG TAB PO SCH (21:43)
[2019-07-23] MEDS: ZOLPIDEM TARTRATE 10 MG TAB PO SCH (21:43)
--- NOTE | 2019-07-23 23:07 | Hospitalist Progress Note ---
Date of Service July 23, 2019 Assessment & Plan (1) Pulmonary emboli: 74-year-old female presenting with bilateral pulmonary emboli, right greater than left. Emboli involve the distal right pulmonary artery, lobar, segmental and subsegmental branches of the right lower lobe. She is afebrile, hemodynamically stable, adequate oxygenation on room air. No prior history of clots, no family history of clots. She does admit to a somewhat sedentary lifestyle where she walks around the house only. Recently completed a 4-hour car ride from [facility]. Observation to medical floor telemetry monitoring -Check bilateral lower extremity Doppler: which confirmed lower extremity DVT. Heparin drip We will start on NOAC tomorrow: it will be brittany, picked up script at pharmacy on 07/23 Placed on tramadol, held discharge as unsure how patient will tolerate medic ation. If able to tolerate this, will discharge in AM. (2) Weakness: Patient complaining of generalized weakness. No focal findings on neurologic exam. Monitor electrolytes. Replete potassium. Continue to monitor (3) Insomnia: Chronic. Stable. Continue Ambien 10 mg p.o. nightly (4) Hypothyroidism: Chronic. Stable. TSH = 2.54 Continue Synthroid 88 mcg p.o. daily (5) Hypercholesteremia: Chronic. Stable. Patient reports that she was on a program for which she could obtain this medication at a reduced fernandes. However, her program has recently and this medication costs over $200 per month. Therefore, she has not taken this since and was planning to discuss with her PCP. Continue atorvastatin 20 mg p.o. nightly. -Case management requested to assist with home medications (6) Leukocytosis: Patient with mildly elevated WBC = 11.76, improved on day 2 She reports malaise and subjective fever at home. Flu is negative, CT chest with some g roundglass in setting of PE.? Developing pneumonia UA positive, procal negative, no symptoms. -WBC may be explained by P/E -CT scan shows now evidence of pneumonia. -Reviewed images with facility maintenance supervisor (not on consult) -Will either need no antibiotics on discharge or patient will need UTI coverage. Given lack of urinary symptoms, inclined to stop antibiotics, howeer, patient did have WBC elevation. -will decide at discharge. Continue to monitor (7) Abnormal LFTs: Patient with mildly elevated total bilirubin at 2.2. No right upper quadrant tenderness. Patient is status post cholecystectomy. Alkaline phosphatase is within normal range at 104. Repeat LFTs in a.m. F/E/N -Hep-Lock. Monitor electrolytes and replete as needed. P.o. potassium 40 mEq x 1 dose. Heart healthy diet as tolerated ProphylaxisHeparin drip as above for treatment of bilateral PE [place] per discussion with patient Subjective Patient reports she has been having pleuritic chest pain and unable to take deep breaths. She is very concerned about possiibiity of pneumonia and her UTI. She deies any urinary symptoms and she denies any changes to her urinary incontinence. She is asking for something for pain Review of Systems Review of Systems: All systems reviewed & are unremarkable except as noted in HPI & below Physical Exam Physical Exam: General: patient resting comfortably, NAD, non-toxic in appearance, AA&O x 4 Skin: warm, dry, intact, no rashes or lesions HEENT: NC/AT, PERRL, EOMI, anicteric sclera, conjunctiva without injection, external ear normal to inspection and nontender, nares patent, moist mucus membranes, dentition intact, no oropharyngeal lesions, neck supple, trachea midline, no LAD, no thyromegaly, no JVD Heart: +S1/S2, regular, no m/r/g, + chest wall tenderness on right Lungs: equal air entry bilaterally, no rales/rhonchi/wheezes Abd: +BS, soft, NT/ND, no masses/organomegaly/ascites Ext: Cool, 2+ pulses in UE/LE bilaterally, no clubbing/cyanosis, trace edema bilaterally Neuro: nonfocal, patient AA&O x 4, speech intact, no facial droop, moving all extremities on command with equal strength 5/5 Results & Data Vital Signs (Past 12 Hours) Vital Signs Temp Pulse Pulse Resp BP Pulse Ox 07/23/19 20:00 37.0 C 76 18 138/82 95 07/23/19 16:00 36.9 C 77 73 20 119/74 94 07/23/19 11:12 36.8 C 72 18 124/63 93 PG Care Time/CCT Total # of Minutes Spent Total Time Spent with Patient: Total time spent is greater than 50% in coordination of care (as documented) at patient's floor/unit and/or counseling patient: (1) Insomnia Insomnia type: unspecified Qualified Code(s): G47.00 - Insomnia, unspecified (2) Hypothyroidism Hypothyroidism type: unspecified Qualified Code(s): E03.9 - Hypothyroidism, unspecified (3) Leukocytosis Leukocytosis type: unspecified Qualified Code(s): D72.829 - Elevated white blood cell count, unspecified (4) Pulmonary emboli Acute cor pulmonale presence: unspecified Chronicity: acute Pulmonary embolism type: unspecified Qualified Code(s): I26.99 - Other pulmonary embolism without acute cor pulmonale
[2019-07-24] MEDS: LEVOTHYROXINE SODIUM 88 MCG TABLET PO SCH (06:02)
[2019-07-24] MEDS: HEPARIN SODIUM/DEXTROSE 25,000 UNITS/500 ML BAG IV SCH (06:26)
[2019-07-24] MEDS ORDERED: ONDANSETRON INJ 2 MG/ML 2 ML VIAL IV PRN (06:31)
[2019-07-24] MEDS ORDERED: ONDANSETRON INJ 2 MG/ML 2 ML VIAL ONE (06:35)
[2019-07-24 06:40] LABS: Partial Thromboplastin Ratio 1.7
[2019-07-24] MEDS ORDERED: APIXABAN 5 MG TABLET PO SCH (09:00)
[2019-07-24] MEDS: AZITHROMYCIN 250 MG in DEXTROSE 5% 250 ML IV SCH (09:14)
[2019-07-24] MEDS: TRAMADOL HCL 50 MG TABLET PO PRN (09:21)
[2019-07-24] MEDS ORDERED: Nursing to Pharmacy Communication ONE (11:00)
--- NOTE | 2019-07-24 11:00 | Discharge Summary ---
Date of Service July 24, 2019 Admission HPI Per Admitting Provider Angeles Ocampo is a pleasant 74-year-old female presenting with right-sided chest pain and shortness of breath. Patient states that her symptoms began on 07/18/2019 as a mild headache which progressed in severity. On 07/19/2019 patient was complaining of more severe headache as well as subjective fevers, dizziness, shortness of breath, dyspnea on exertion as well as severe right-sided chest pain. Chest pain is located from the right sternal border to the right anterior portion of the chest and under her right breast. Pain is worse with movement and deep breathing. Pain 10 out of 10 on arrival. After receiving Tylenol pain is now 7 out of 10. She denies cough, hemoptysis. No syncope. Patient with no personal history of VTE, no known family history of VTE. No recent surgeries or trauma. She did recently complete a 4-hour car ride from [place], [place]. She reports that they stopped approximately usp to use the restroom, stretches her legs and get coffee. She denies lower extremity pain, cramping or swelling. Patient reports regular mammograms which have all been unremarkable. She has never had a colonoscopy. She is status post hysterectomy. ER course: Tylenol, heparin drip with bolus Principal Diagnosis Bilateral pulmonary emboli Discharge Exam Constitutional WD/WN, vitals as above Eyes PERRL, conjunctivae normal, anicteric sclerae ENMT external ear and nose normal, oropharynx normal Neck trachea midline, no thyromegaly Respiratory normal respiratory effort, lungs clear to auscultation Cardiovascular RRR, no murmur, no edema Gastrointestinal (Abdomen) normal bowel sounds, soft, nontender, no hepatosplenomegaly Musculoskeletal no cyanosis or clubbing, extremities motor strength 5/5 Skin no rashes, warm and dry Neurologic patellar DTR's 2+ bilat, sensation intact and PERRL, EOMI, accommodation nl, no face palsy, no dysarthria Psychiatric A+Ox3, euthymic affect Lymphatic no cervical or axillary lymphadenopathy Discharge Data Allergies Allergy/AdvReac Type Severity Reaction Status Date / Time aspirin Allergy Intermediate HIVES AND Verified 07/22/19 14:08 ITCHING metronidazole Allergy Intermediate HIVES AND Verified 07/22/19 14:08 ITCHING Quinolones Allergy Intermediate HIVES AND Verified 07/22/19 14:08 ITCHING Cipro Allergy Mild Rash Verified 08/04/15 07:28 ciprofloxacin Allergy Mild Rash Verified 07/22/19 14:08 clarithromycin Allergy Mild Rash Verified 07/22/19 14:08 amoxicillin [From Augmentin] AdvReac Verified 07/22/19 14:08 clavulanic acid AdvReac Verified 07/22/19 14:08 [From Augmentin] homatropine AdvReac Verified 07/22/19 14:08 [From Hycodan (with homatropin)] hydrocodone AdvReac Verified 07/22/19 14:08 [From Hycodan (with homatropin)] Consultations 07/22/19 14:43 ED Decision to Admit Stat 07/22/19 17:00 Consult Case Management - Discharge Planning Routine Ordered Studies 07/22/19 12:55 CT angio chest PE protocol Stat 07/22/19 17:00 US venous doppler [facility] Routine Hospital Course (1) Pulmonary emboli: 74-year-old female presenting with bilateral pulmonary emboli, right greater than left. Emboli involve the distal right pulmonary artery, lobar, segmental and subsegmental branches of the right lower lobe. She is afebrile, hemodynamically stable, adequate oxygenation on room air. No prior history of clots, no family history of clots. She does admit to a somewhat sedentary lifestyle where she walks around the house only. Recently completed a 4-hour car ride from [facility]. Likely provoked given the recent long car ride -Check bilateral lower extremity Doppler: which confirmed lower extremity DVT, right leg treated initially with Heparin drip started on Eliquis 10mg BID x 7 days then 5mg BID, picked up prescription prior to discharge for right sided pleuritic chest pain, Ultram worked well, will provide her with a week supply as pain should subside on discharge she was breathing comfortably, minimal right sided chest pain, eating well, no fever/chills she understood that she should take her Eliquis, likely be on it for a minimum of 6 months since it was a PE will follow up with PCP (2) Weakness: Patient complaining of generalized weakness. No focal findings on neurologic exam. Monitor electrolytes. Replete potassium. improved with rest, felt strong enough to go home, anxious to leave hospital (3) Insomnia: Chronic. Stable. Continue Ambien 10 mg p.o. nightly (4) Hypothyroidism: Chronic. Stable. TSH = 2.54 Continue Synthroid 88 mcg p.o. daily (5) Hypercholesteremia: Chronic. Stable. Patient reports that she was on a program for which she could obtain this medication at a reduced fernandes. However, her program has recently and this medication costs over $200 per month. Therefore, she has not taken this since and was planning to discuss with her PCP. Continue atorvastatin 20 mg p.o. nightly. (6) Leukocytosis: Patient with mildly elevated WBC = 11.76, improved on day 2 She reports malaise and subjective fever at home. Flu is negative, CT chest with some groundglass in setting of PE.? UA positive, procal negative, no symptoms. -WBC is most likely due to PE and DVT -CT scan shows no evidence of pneumonia. (7) Abnormal LFTs: Patient with mildly elevated total bilirubin at 2.2. No right upper quadrant tenderness. Patient is status post cholecystectomy. Alkaline phosphatase is within normal range at 104. Total Time Total Time Spent Total Time Spent (In Minutes): 32 minutes Total Time Includes: Examination of the Patient, Discharge Planning and Medication Reconciliation Discharge Plan Discharge Items Patient Disposition: Home - Self-Care Reason For Visit: BILATERAL PE Discharge Diagnosis: Bilateral pulmonary emboli DVT in right leg Condition on Discharge: Good Goals: continue treatment with Eliquis pain control with Ultram get rest, stay well hydrated and well nourished Activity: Per Instructions section Lifting: None Bathing: No limitations Exercise/Sports: Gradually increase as tolerated Driving/Machine Use: Resume 3 days after discharge Non-emergency contact: Primary Care Provider Call non-emergency contact if: you have any medication questions, your symptoms worsen, your pain is not controlled and you have a fever Follow-up/Referrals: Abelardo Smith III, MD [Primary Care Provider] - 07/31/19 2:15 pm (Please, follow up at Dr. Smith's office with his associate, Amber RIVERA, on MondayJuly 31 at 2:15 pm. *If you need to change this appointment, call their office at [phone].) Diet: Heart Healthy Addtl Attending Provider Instructions: Medications: - ELIQUIS: take 10mg twice a day for 7 days then 5mg twice a day - ULTRAM: take as needed for pain in chest Bilateral pulmonary emboli, more clots on the right side Right leg DVT provoked clot brought on by long car ride treated initially with heparin drip, transitioned to Eliquis morning of 07/24 as we discussed, will need to be on Eliquis a minimum of 6 months for pulmonary emboli please follow up with Dr. Smith on 07/31 as scheduled use the Ultram as needed for pain, symptoms should improve/resolve in the next 1-2 weeks Pending Studies at Discharge: No Stand-Alone Forms: [facility], Smoking Cessation Medications and DC Order Prescriptions: New Eliquis 5 mg (74 tabs) tablets,dose pack See Rx Instructions .ROUTE .COMPLEX Qty: 74 RF: 0 tramadol 50 mg Tablet 50 mg PO Q4 PRN (Reason: pain) 10 Days Qty: 60 RF: 0 Continued atorvastatin [Lipitor] 20 mg tablet 20 mg PO HS Qty: 30 RF: 11 levothyroxine 88 mcg tablet 88 mcg PO DAILY Qty: 60 RF: 5 zolpidem 10 mg tablet 10 mg PO HS Qty: 30 RF: 5 Discharge Orders: Discharge Order (Routine); Ordered 07/24/19 Ordered By: Gen Fuentes Admission Data Admit Date/Time: 07/22/19 15:24 Attending Provider: Gen Fuentes Admit Provider: Nanci Alberts Primary Care Provider: Abelardo Smith III Other Providers: Nanci Alberts Other Interventions: Discharge Summary Assessment (RN) Last Done: 07/24/19 11:38 DC Date/Time DO NOT enter until pt leaves facility: 07/24/19 13:00
[2019-07-24] MEDS ORDERED: TRAMADOL HCL 50 MG HOME PACK PO ONE (11:15)
[2019-07-31] MEDS ORDERED: APIXABAN 5 MG TABLET PO SCH (09:00)
== END 2019-07-24 13:00 | disposition home or self-care (01) ==
LOC: 2N 12:19 → ED 12:19 → SUATTDRO 15:24 → 2N 16:22